=== PATIENT | female | born 1990 | race Caucasian/White ===

== ENCOUNTER 2021-07-10 12:02 | Outpatient (CLI) | payer OTHER ==
[~2021-07-10] VITALS: Ht 157.5 cm; Wt 78.6 kg
[2021-07-10] VITALS (8 sets, daily range): BP systolic 110–137; BP diastolic 57–68; PULSE 82–107; TEMP 98.1–98.7
--- NOTE | 2021-07-10 12:05 | NUR ---
Patient ambulatory to [facility], changed into gown, FHR/TOCO monitors placed and explained. Patient states that she has been having abdominal pain, vomitted this moring, and has not kept anything down and is still nauseated. Patient denies any leaking of fluid/vaginal bleeding/decreased movement. Plan of care discussed. Dr. Lindsey at nurses station and orders obtained.
[2021-07-10] MEDS ORDERED: PRENATAL TABLET PO (13:08)
[2021-07-10 13:37] LABS: COLLECTION METHOD CLEAN CATCH
[2021-07-10 13:45] LABS: MUCOUS Present (NOT PRESENT); PH 5 (5-8); URINE APPEARANCE Hazy (CLEAR/HAZY); URINE BACTERIA None Seen /hpf (NONE SEEN); URINE BILIRUBIN Negative (NEGATIVE); URINE BLOOD 2+ (NEGATIVE); URINE COLOR Yellow (YELLOW); URINE GLUCOSE Negative (NEGATIVE); URINE KETONE 2+ (NEGATIVE); URINE LEUKOCYTE ESTERASE Negative (NEGATIVE); URINE NITRATE Negative (NEGATIVE); URINE PROTEIN(semi-quant) 1+ (NEGATIVE); URINE UROBILINOGEN Negative (NEGATIVE)
[2021-07-10 15:03] LABS: BASO % 0.3 % (0.0-2.0); EOS % 0.4 % (0.0-4.0); GRAN # 8.6 K/mm3 (1.4-6.5); GRAN % 79.6 % (42.2-75.2); HEMATOCRIT 34.1 % (37.0-47.0); LYMPH # 1.2 K/mm3 (1.2-3.4); MEAN CELL VOLUME 87 fl (80.0-100.0); MEAN CORPUSCULAR HEMOGLOBIN 28 pg (27-31); MEAN CORPUSCULAR HGB CONC 32 g/dl (33.0-37.0); MEAN PLATELET VOLUME 12.8 fl (7.4-10.4); MONO # 0.9 K/mm3 (0.1-0.6); MONO % 8.3 % (1.7-9.3); PLATELET COUNT 197 K/mm3 (130-400); REDCELL DISTRIBUTION WIDTH-CV 14.6 % (11.5-14.5)
[2021-07-10 15:16] LABS: ALBUMIN 2.6 gm/dL (3.5-5.0); BILIRUBIN,TOTAL 0.7 mg/dL (0.2-1.2); CALCIUM 8.2 mg/dL (8.4-10.2); CREATININE, serum 0.55 mg/dL (0.57-1.11); POTASSIUM 3.5 mmol/L (3.5-4.5)
--- NOTE | 2021-07-10 15:42 | NUR ---
Patient off monitors and given discharge instructions. Patient verbalizes understanding and agrees with plan. IV removed. 1550: Patient ambulates off unit.
== END 2021-07-10 15:50 | disposition home or self-care (01) ==
LOC: LDRO 12:02 → LDR 12:05 → LDRO 15:50 → LDR 15:50
PROVIDERS: Student in an Organized Health Care Education/Training Program
DX: O21.2 Late vomiting of pregnancy (principal); O26.893 Other specified pregnancy related conditions, third trimester; R10.9 Unspecified abdominal pain; Z3A.36 36 weeks gestation of pregnancy
CPT/HCPCS: OP; J0702; J2405; J3105; J7120